=== PATIENT | female | born 1975 | race Caucasian/White ===

== ENCOUNTER 2017-02-02 06:59 | Observation (INO) | payer OTHER, BC ==
--- NOTE | ~2017-02-02 | OP ---
Record Of Operation [facility] [address] [place]. [address] NAME: BHUMI JUAREZ : 71 STATUS : DIS Ioana PAT#: [id number] AGE: 41 ADM/REG DATE : 02/02/17 MR#: [id number] REPORT SERV DATE: 02/05/17 DICTATED BY: NAVA MEDINA II DATE: 02/05/17 REPORT STATUS : Draft TRANSCRIBED BY: MODL DATE: 02/05/17 DATE OF PROCEDURE: 02/02/2017 PREOPERATIVE DIAGNOSES: 1. Left upper extremity radiculopathy. 2. C4-5, C5-6, C6-7 stenosis. 3. Degenerative disc disease C4-5, C5-6, C6-7. POSTOPERATIVE DIAGNOSES: 1. Left upper extremity radiculopathy. 2. C4-5, C5-6, C6-7 stenosis. 3. Degenerative disc disease C4-5, C5-6, C6-7. PROCEDURE: 1. C4-5, C5-6, C6-7 anterior interbody arthrodesis. 2. Application of prosthetic devices, C4-5, C5-6, C6-7. 3. Anterior instrumentation, C4-7 (four segments). 4. Use of the microscope. 5. Use of allograft substitute and bone marrow aspirate. SURGEON: Nava Medina M.D. FLUIDS: 1200 mL LR. ESTIMATED BLOOD LOSS: 20 mL. DRAINS: One drain. ANESTHESIA: General anesthesia. COMPLICATIONS: None. PREOPERATIVE HISTORY: This is a very friendly, 41-year-old female with complaints of significant neck pain radiating into the left periscapular region and down the arm consistent with radiculopathy. We discussed the pros and cons of continuing nonoperative care versus surgery. We discussed postoperative recovery as well as answered all of her questions appropriately. We discussed the difficulty swallowing typically encountered following the surgery. We discussed the fact that there were some risks more common to the surgery such as hoarseness. Adjacent segment degeneration was also discussed. We discussed the fact that there is always a small chance of stroke and . DESCRIPTION OF PROCEDURE: After informed consent was obtained, the patient was brought to the operating room at her request, and general anesthesia was achieved. She was placed in the supine position and the neck and iliac crest were prepped and draped in a sterile fashion. A 5 mL of bone marrow were aspirated, followed by a right-sided longitudinal incision. The interval was explored, and the deep cervical fascia incised. The Record Of Operation [facility] [address] [place]. [address] NAME: BHUMI JUAREZ : 71 STATUS : DIS Ioana PAT#: [id number] AGE: 41 ADM/REG DATE : 02/02/17 MR#: [id number] REPORT SERV DATE: 02/05/17 DICTATED BY: NAVA MEDINA II DATE: 02/05/17 REPORT STATUS : Draft TRANSCRIBED BY: MODShruthi DATE: 02/05/17 subperiosteal exposure was completed, and the Guild pins were placed. The microscope was then brought into place and under microscopic visualization, the C4-5 diskectomy was completed. The endplates were prepared with the curettes and the high-speed bur. The posterior vertebral body osteophytes were removed followed by removal of the posterior longitudinal ligament. The prosthetic device was then well placed following decompression of the exiting nerve roots. This contained allograft substitute and bone marrow aspirate. Next, the C5-6 level was addressed in a similar manner with diskectomy followed by use of the pituitary rongeurs, Kerrison rongeurs, and curettes. The endplates were made to be parallel with the high-speed bur. The posterior vertebral body osteophytes were also removed. The foraminotomies were completed with the Kerrison rongeurs and the prosthetic device well placed at C5-6. Once again, this contained allograft substitute and bone marrow aspirate. Next, the C6-7 level was addressed. The diskectomy was performed using the pituitary rongeurs, Kerrison rongeurs, and the curettes. The high-speed bur was once again used to create parallel endplates followed by removal of the posterior vertebral body osteophytes and the posterior longitudinal ligament. The prosthetic device was then placed at C6-7. Next, the Guild pins were removed and the anterior fixation placed. This was a separate plate and screw construct. Two screws were placed in the C4, C5, C6 and C7. The fluoroscopy then confirmed acceptable placement of the implants. The area was now found to be hemostatic except for some mild cancellous bone bleeding, for which a deep drain was placed. The standard closure was then performed. The patient then extubated and transferred to PACU in stable condition. JJ/MARKL Nava Medina II, M.D. / [id number] CC: Chance Lyle II, M.D.
[~2017-02-02 06:59] MED LIST: ATV1 PO; ENDOCET1 TA3 PO; MULTIPLE SUPPLEMENTS; ZESTRIL10 MG PO; ZOL100 PO; ZYRTEC ALLGY10 MG PO
[2017-02-03] MEDS ORDERED: DSS PO (10:29)
[2017-02-03] MEDS ORDERED: ROXICODONE15 MG PO (10:30)
[2017-02-03] MEDS ORDERED: V5 PO (10:31)
== END 2017-02-03 12:57 | disposition home or self-care (01) ==
LOC: SDC 06:59 → 1SO 13:13
PROVIDERS: Orthopaedic Surgery
PROC: 07DS3ZZ Extraction of Vertebral Bone Marrow, Percutaneous Approach (ICD-10-PCS; 2017-02-02)
PROC: 0RG20A0 Fusion of 2 or more Cervical Vertebral Joints with Interbody Fusion Device, Anterior Approach, Anterior Column, Open Approach (ICD-10-PCS; 2017-02-02)
PROC: 079T3ZX Drainage of Bone Marrow, Percutaneous Approach, Diagnostic (ICD-10-PCS; 2017-02-02)
PROC: 0RB30ZZ Excision of Cervical Vertebral Disc, Open Approach (ICD-10-PCS; principal; 2017-02-02 08:45)
PROC: 0RG20K0 Fusion of 2 or more Cervical Vertebral Joints with Nonautologous Tissue Substitute, Anterior Approach, Anterior Column, Open Approach (ICD-10-PCS; 2017-02-02 08:45)
DX: M50.123 Cervical disc disorder at C6-C7 level with radiculopathy (principal); M48.02 Spinal stenosis, cervical region; G47.33 Obstructive sleep apnea (adult) (pediatric); I10 Essential (primary) hypertension; Z98.51 Tubal ligation status; Z98.890 Other specified postprocedural states; Z79.899 Other long term (current) drug therapy; Z88.6 Allergy status to analgesic agent; Z99.81 Dependence on supplemental oxygen
CPT/HCPCS: 80048; 82962; 84703; 85014; 85018; 87641; 88304; 88311; 93005; 96374; 96375; 96376; A9270-GY; C1713; G0378; J0690; J1170; J2250; J2405; J2710; J3010